=== PATIENT | male | born 2000 ===

== ENCOUNTER 2020-03-03 01:45 | Emergency (ER) | payer SELFPAY ==
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
--- NOTE | 2020-03-03 01:54 | NUR ---
SECURITY STANDING BY, ROOM BEING CLEANED AT THIS TIME.
[2020-03-03 01:56] VITALS: BP 132/74
--- NOTE | 2020-03-03 02:04 | NUR ---
PD HERE AT THIS TIME
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
== END 2020-03-03 02:16 | disposition home or self-care (01) ==
LOC: ED 02:10
DX: F10.129 Alcohol abuse with intoxication, unspecified (principal); Y90.0 Blood alcohol level of less than 20 mg/100 ml
CPT/HCPCS: 96361; 96372; 96374; 96375; 99283; 99284